=== PATIENT | male | born 1950 | race Caucasian/White ===

== ENCOUNTER 2022-12-22 10:52 | Emergency (ER) | payer MEDICARE ==
--- NOTE | 2022-12-22 11:01 | ERPHSYRPT ---
- History of Present Illness Time Seen by Provider: 12/22/22 11:01 Source: patient Exam Limitations: no limitations Physician History: This is a 72-year-old white male patient who is a patient of nurse practitioner Rosa Stewart and has had intermittent dizziness for the last 2 to 3 months. He became concerned because in the last several days he has had more frequent ep isodes including 3 episodes yesterday. He states that he does not know specifically what brings it on but he has noticed there have been times where he is looked to the right and down and then when he brought his eyes back to midline he was a little bit dizzy and had double vision. The symptoms cleared up relatively quickly. He has not had any head injury. There is been no exposure to any new medications. In fact he has no known drug allergies and he takes no medications chronically. Patient denies chest pain and he denies shortness of breath. He said no abdominal pain. He said no nausea vomiting or diarrhea. However when these episodes come on abruptly he does experience some nausea. Timing/Duration: intermittent, other (2 to 3 months) Severity: mild Character of Deficits: none Deficits: no difficulties Baseline/Normal Cognition: alert oriented x 3 (To moderate) Current Cognition: alert oriented x 3 Baseline Gait: walks w/o assistance Associated Symptoms: denies symptoms, nausea (Occasionally with the episodes but not all episodes), vision changes (Short-lived double vision), other (Dizziness) Allergies/Adverse Reactions: No Known Drug Allergies Allergy (Verified 12/22/22 11:09) Travel Risk - Coronavirus Screening Are you exhibiting any of the following symptoms?: No Close contact with a COVID-19 positive Pt in past 14-21 Days: No - Review of Systems Constitutional: No Symptoms Eyes: No Symptoms Ears, Nose, & Throat: No Symptoms Respiratory: No Symptoms Cardiac: No Symptoms Abdominal/Gastrointestinal: Nausea (Occasionally with episodes of dizziness) Genitourinary Symptoms: No Symptoms Musculoskeletal: No Symptoms Skin: No Symptoms Neurological: Dizziness Psychological: No Symptoms Endocrine: No Symptoms Hematologic/Lymphatic: No Symptoms Immunological/Allergic: No Symptoms All Other Systems: Reviewed and Negative - Past Medical History Pertinent Past Medical History: No - Past Surgical History Past Surgical History: No - Nursing Vital Signs Nursing Vital Signs: Initial Vital Signs Temperature 97.9 F 12/22/22 11:01 Pulse Rate 86 12/22/22 11:01 Respiratory Rate 20 12/22/22 11:01 Blood Pressure 160/83 12/22/22 11:01 O2 Sat by Pulse Oximetry 98 12/22/22 11:01 Pain Scale Pain Intensity 0 - [place] Coma Scale Best Eye Response (Nicolle): (4) open spontaneously Best Verbal Response ([place]): (5) oriented Best Motor Response (N[place]le): (6) obeys commands [place] Total: 15 - Physical Exam General Appearance: no apparent distress, alert, anxiety Eye Exam: bilateral eye: normal inspection, PERRL, EOMI Ears, Nose, Throat Exam: normal ENT inspection, moist mucous membranes Neck Exam: normal inspection, non-tender, supple, full range of motion Respiratory: normal breath sounds, lungs clear, airway intact, No chest tenderness, No respiratory distress Cardiovascular: regular rate/rhythm, normal heart sounds, normal peripheral pulses Gastrointestinal: soft, normal bowel sounds, No tenderness Rectal Exam: not done Back Exam: normal inspection, normal range of motion, No CVA tenderness, No vertebral tenderness Extremity Exam: normal inspection, normal range of motion, pelvis stable Mental Status: alert, oriented x 3, cooperative stitchdowns toe former Exam: normal hearing, normal speech, PERRL, tongue midline Coordination/Gait: normal finger to nose, normal gait, normal cerebellar funct ion Skin Exam: normal color, warm, dry SpO2 Interpretation: normal O2 Delivery: Room Air - Course Nursing assessment & vital signs reviewed: Yes EKG Interpreted by Me: RATE (76), Sinus Rhythm, NORMAL AXIS, NORMAL INTERVALS, NORMAL QRS, NORMAL ST-T, Other (No acute ischemic changes on today's twelve-lead EKG) Ordered Tests: Active Orders 24 hr Category Date Time Status Yarding Supervisor STAT Care 12/22/22 11:38 Active EKG-ER Only STAT Care 12/22/22 11:37 Active IV Insertion STAT Care 12/22/22 11:37 Active HEAD WITHOUT CONTRAST [CT] Stat Exams 12/22/22 11:38 Completed CBC W DIFF Stat Lab 12/22/22 11:10 Completed CMP Stat Lab 12/22/22 11:10 Completed ETHYL ALCOHOL Stat Lab 12/22/22 11:10 Completed MAGNESIUM Stat Lab 12/22/22 11:10 Completed TROPONIN Q4H Lab 12/22/22 11:10 Completed TROPONIN Q4H Lab 12/22/22 15:45 Ordered TROPONIN Q4H Lab 12/22/22 19:45 Ordered UA W/RFX UR CULTURE Stat Lab 12/22/22 12:19 Completed Urine Triage Profile Stat Lab 12/22/22 12:19 Completed Medication Summary Discontinued Medications Generic Name Dose Route Start Last Admin Trade Name Boby PRN Reason Stop Dose Admin Meclizine HCl 25 mg 12/22/22 13:00 12/22/22 13:05 Meclizine Hcl 25 Mg Tablet PO 12/22/22 13:01 25 mg STAT ONE Administration Meclizine HCl Confirm 12/22/22 13:04 Meclizine Hcl 25 Mg Tablet Administered 12/22/22 13:05 Dose 25 mg .ROUTE .STK-MED ONE Lab/Rad Data: Laboratory Result Diagrams 12/22/22 11:10 12/22/22 11:10 Laboratory Results 12/22/22 12/22/22 12/22/22 Range/Units 12:19 12:19 11:10 WBC (4.0-10.5) x10^3/uL RBC (4.1-5.6) x10^6/uL Hgb (12.5-18.0) g/dL Hct (42-50) % MCV (78-100) fL MCH (26-32) pg MCHC (32-36) g/dL RDW (11.5-14.0) % Plt Count (150-450) x10^3/uL MPV (7.5-11.0) fL Gran % (36.0-66.0) % Immature Gran % (Auto) (0.00-0.4) % Nucleat RBC Rel Count (0.00-0.1) % Eos # (Auto) (0-0.5) x10^3/uL Immature Gran # (Auto) (0.00-0.03) x10^3u/L Absolute Lymphs (auto) (1.0-4.6) x10^3/uL Absolute Monos (auto) (0.0-1.3) x10^3/uL Absolute Nucleated RBC (0.00-0.01) x10^3u/L Lymphocytes % (24.0-44.0) % Monocytes % (0.0-12.0) % Eosinophils % (0.00-5.0) % Basophils % (0.0-0.4) % Absolute Granulocytes (1.4-6.9) x10^3/uL Basophils # (0-0.4) x10^3/uL Sodium (137-145) mmol/L Potassium (3.5-5.1) mmol/L Chloride (98-107) mmol/L Carbon Dioxide (22-30) mmol/L Anion Gap (5-15) MEQ/L BUN (9-20) mg/dL Creatinine (0.66-1.25) mg/dL Estimated GFR ML/MIN Glucose (74-106) mg/dL Calcium (8.4-10.2) mg/dL Magnesium (1.6-2.3) mg/dL Total Bilirubin (0.2-1.3) mg/dL AST (17-59) U/L ALT (0-50) U/L Alkaline Phosphatase (38-126) U/L Troponin I < 0.012 (0.000-0.034) ng/mL Serum Total Protein (6.3-8.2) g/dL Albumin (3.5-5.0) g/dL Urine Color Yellow (Yellow) Urine Appearance Clear (Clear) Urine pH 5.5 (4.6-8.0) Ur Specific [place] 1.010 (1.005-1.030) Urine Protein Negative (Negative) Urine Glucose (UA) Negative (Negative) mg/dL Urine Ketones Negative (Negative) Urine Blood Negative (Negative) Urine Nitrite Negative (Negative) Urine Bilirubin Negative (Negative) Urine Urobilinogen 0.2 (0.2) mg/dL Ur Leukocyte Esterase Negative (Negative) U Hyaline Cast (Auto) NONE SEEN (0-2) /LPF Urine Microscopic RBC 0-2 (0-5) /HPF Urine Microscopic WBC 0-2 (0-5) /HPF Ur Epithelial Cells None Seen (None Seen) /HPF Urine Bacteria None Seen (None Seen) /HPF Urine Culture Reflexed NO (NO) Urine Opiates Level NEGATIVE (NEGATIVE) Ur Methadone NEGATIVE (NEGATIVE) Urine Barbiturates NEGATIVE (NEGATIVE) Ur Phencyclidine (PCP) NEGATIVE (NEGATIVE) Urine Amphetamine NEGATIVE (NEGATIVE) U Benzodiazepine Level NEGATIVE (NEGATIVE) Urine Cocaine NEGATIVE (NEGATIVE) Urine Marijuana (THC) NEGATIVE (NEGATIVE) Ethyl Alcohol (0-10) mg/dL 12/22/22 12/22/22 Range/Units 11:10 11:10 WBC 7.8 (4.0-10.5) x10^3/uL RBC 5.08 (4.1-5.6) x10^6/uL Hgb 15.9 (12.5-18.0) g/dL Hct 46.7 (42-50) % MCV 91.9 (78-100) fL MCH 31.3 (26-32) pg MCHC 34.0 (32-36) g/dL RDW 12.8 (11.5-14.0) % Plt Count 268 (150-450) x10^3/uL MPV 9.9 (7.5-11.0) fL Gran % 65.4 (36.0-66.0) % Immature Gran % (Auto) 0.3 (0.00-0.4) % Nucleat RBC Rel Count 0.0 (0.00-0.1) % Eos # (Auto) 0.20 (0-0.5) x10^3/uL Immature Gran # (Auto) 0.02 (0.00-0.03) x10^3u/L Absolute Lymphs (auto) 1.69 (1.0-4.6) x10^3/uL Absolute Monos (auto) 0.69 (0.0-1.3) x10^3/uL Absolute Nucleated RBC 0.00 (0.00-0.01) x10^3u/L Lymphocytes % 21.6 L (24.0-44.0) % Monocytes % 8.8 (0.0-12.0) % Eosinophils % 2.6 (0.00-5.0) % Basophils % 1.3 (0.0-0.4) % Absolute Granulocytes 5.14 (1.4-6.9) x10^3/uL Basophils # 0.10 (0-0.4) x10^3/uL Sodium 139 (137-145) mmol/L Potassium 4.4 (3.5-5.1) mmol/L Chloride 103 (98-107) mmol/L Carbon Dioxide 26 (22-30) mmol/L Anion Gap 14.3 (5-15) MEQ/L BUN 17 (9-20) mg/dL Creatinine 1.14 (0.66-1.25) mg/dL Estimated GFR > 60.0 ML/MIN Glucose 137 H (74-106) mg/dL Calcium 9.1 (8.4-10.2) mg/dL Magnesium 2.2 (1.6-2.3) mg/dL Total Bilirubin 0.80 (0.2-1.3) mg/dL AST 20 (17-59) U/L ALT 20 (0-50) U/L Alkaline Phosphatase 96 (38-126) U/L Troponin I (0.000-0.034) ng/mL Serum Total Protein 7.9 (6.3-8.2) g/dL Albumin 4.4 (3.5-5.0) g/dL Urine Color (Yellow) Urine Appearance (Clear) Urine pH (4.6-8.0) Ur Specific [place] (1.005-1.030) Urine Protein (Negative) Urine Glucose (UA) (Negative) mg/dL Urine Ketones (Negative) Urine Blood (Negative) Urine Nitrite (Negative) Urine Bilirubin (Negative) Urine Urobilinogen (0.2) mg/dL Ur Leukocyte Esterase (Negative) U Hyaline Cast (Auto) (0-2) /LPF Urine Microscopic RBC (0-5) /HPF Urine Microscopic WBC (0-5) /HPF Ur Epithelial Cells (None Seen) /HPF Urine Bacteria (None Seen) /HPF Urine Culture Reflexed (NO) Urine Opiates Level (NEGATIVE) Ur Methadone (NEGATIVE) Urine Barbiturates (NEGATIVE) Ur Phencyclidine (PCP) (NEGATIVE) Urine Amphetamine (NEGATIVE) U Benzodiazepine Level (NEGATIVE) Urine Cocaine (NEGATIVE) Urine Marijuana (THC) (NEGATIVE) Ethyl Alcohol < 10 (0-10) mg/dL - Progress Progress: improved Progress Note: 12/22/22 13:14 CT scan of the head without contrast shows a nonacute senile brain. 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 There is mild paranasal sinus disease. This patient's medical issue is 1 of moderate complexity. The level of complexity and the work-up performed is based on the patient's past medical history, medication list review, review of drug allergy list, history of present illness and physical findings on examination. The work-up performed was p lacement of an intravenous line, obtaining and twelve-lead EKG, troponin level, CBC, CMP, urinalysis and urine drug screen. Review of the results of the study show no acute or emergent findings. The diagnosis will be vertigo. We we will provide the patient with Antivert 25 mg orally now and a prescription will be sent to his pharmacy for the same. Patient is to follow-up with his primary care provider for further evaluation and management. Counseled pt/family regarding: lab results, diagnosis, need for follow-up, rad results Medical Desision Making - Discussion of managment Reviewed:: Test results, Need for additional workup Agreed on:: Treatment plan, need for follow-up - Diagnostic Testing Diagnostic test were ordered, analyzed, and reviewed by me: Yes Radiological Interpretation: Reviewed by me, Teleradiologist Report - Risk of complications The pt has a mod risk of morbidity or mortality based on: Need for prescription drug management - Departure Departure Disposition: Home Clinical Impression: Vertigo Condition: Stable Critical Care Time: No Referrals: SCREEN,DRUG [NON-STAFF PHY W/O PRIVILEGES] - Follow up/PCP as directed Additional Instructions: Drink plenty of fluids. Take your medication as prescribed. Follow-up with your primary care provider for further evaluation and management including referral to a neurologist if indicated. Prescriptions: Meclizine HCl 25 mg [Antivert 25 mg] 25 mg PO Q8H PRN #10 tablet PRN Reason: Dizziness
[2022-12-22 11:56] LABS: Absolute Neutrophil Ct (ANC) 5.14 x10^3/uL (1.4-6.9); BASOPHIL % 1.3 % (0.0-0.4); Eosinophil % 2.6 % (0.00-5.0); Hematocrit 46.7 % (42-50); Hemoglobin 15.9 g/dL (12.5-18.0); IMMATURE GRAN # 0.02 x10^3u/L (0.00-0.03); IMMATURE GRAN % 0.3 % (0.00-0.4); Lymphocyte (Absolute #) 1.69 x10^3/uL (1.0-4.6); Lymphocytes % 21.6 % (24.0-44.0); Mean Cell Volume 91.9 fL (78-100); Mean Corpuscular Hemoglobin 31.3 pg (26-32); Mean Platelet Volume 9.9 fL (7.5-11.0); Monocyte (Absolute #) 0.69 x10^3/uL (0.0-1.3); Monocytes % 8.8 % (0.0-12.0); Neutrophil % 65.4 % (36.0-66.0); Platelet Count 268 x10^3/uL (150-450); Red Blood Count 5.08 x10^6/uL (4.1-5.6); Red Cell Distribution Width 12.8 % (11.5-14.0); White Blood Count 7.8 x10^3/uL (4.0-10.5)
[2022-12-22 12:10] LABS: ALBUMIN 4.4 g/dL (3.5-5.0); ALKALINE PHOSPHATASE 96 U/L (38-126); ANION GAP 14.3 MEQ/L (5-15); BLOOD UREA NITROGEN 17 mg/dL (9-20); CHLORIDE 103 mmol/L (98-107); Calcium 9.1 mg/dL (8.4-10.2); Carbon Dioxide 26 mmol/L (22-30); Creatinine 1 1.14 mg/dL (0.66-1.25); EST GLOMERULAR FILTRATION RATE > 60.0 ML/MIN; ETHYL ALCOHOL < 10 mg/dL (0-10); Glucose 137 mg/dL (74-106); MAGNESIUM 2.2 mg/dL (1.6-2.3); Potassium 4.4 mmol/L (3.5-5.1); SGOT/AST 20 U/L (17-59); SGPT/ALT 20 U/L (0-50); SODIUM 139 mmol/L (137-145); Total Protein 7.9 g/dL (6.3-8.2)
--- NOTE | 2022-12-22 12:26 | XRAY ---
Indication: Dizziness. Multiple contiguous axial images obtained through the head without contrast. Comparison: None Age-appropriate global atrophy and minimal periventricular degenerative micro-ischemia. Basal ganglia demonstrates if few tiny remote lacunar infarcts bilaterally. No acute intracranial hemorrhage, abnormal extra-axial fluid collection, or mass effect. Fourth ventricle is midline without hydrocephalus. Montilla-white matter differentiation preserved. Bony calvarium intact. Mild mucosal thickening both ethmoid sinuses. Mastoid air cells are clear. Impression: Nonacute senile brain with tiny bilateral remote lacunar infarcts basal ganglia. Incidental mild paranasal sinus disease.
[2022-12-22 12:33] VITALS: O2SAT 97
[2022-12-22 12:42] LABS: Appearance Clear (Clear); Bacteria None Seen /HPF (None Seen); Bilirubin Negative (Negative); Blood Negative (Negative); Epithelial Cells None Seen /HPF (None Seen); Glucose, Urine Negative (Negative); Hyaline Casts NONE SEEN /LPF (0-2); Ketones Negative (Negative); Leukocyte Esterase Negative (Negative); Nitrite Negative (Negative); Ph 5.5 (4.6-8.0); Protein,Urine Dip Negative (Negative); RBC 0-2 /HPF (0-5); Urobilinogen 0.2 mg/dL (0.2); WBC 0-2 /HPF (0-5)
[2022-12-22 12:47] LABS: ADD URINE CULTURE? NO (NO)
[2022-12-22] MEDS ORDERED: ANTIVERT 25 MG PO ONE (13:00)
[2022-12-22 13:01] LABS: Amphetamine,Urine NEGATIVE (NEGATIVE); Barbiturate,Urine NEGATIVE (NEGATIVE); Benzodiazepine,Urine NEGATIVE (NEGATIVE); Cocaine,Urine NEGATIVE (NEGATIVE); Methadone,Urine NEGATIVE (NEGATIVE); Opiate,Urine NEGATIVE (NEGATIVE); PCP,Urine NEGATIVE (NEGATIVE); THC,Urine NEGATIVE (NEGATIVE)
[2022-12-22] MEDS ORDERED: ANTIVERT 25 MG ONE (13:04)
[2022-12-22 13:33] VITALS: BP 132/82; PULSE 75
== END 2022-12-22 13:34 | disposition home or self-care (01) ==
LOC: ED 10:52
DX: R42 Dizziness and giddiness (principal); Z79.899 Other long term (current) drug therapy
CPT/HCPCS: 36000; 36415; 70450; 80053; 80307; 81001; 82077; 83735; 84484; 85025; 93005; 93041; 99284; A9270-GY

== ENCOUNTER 2023-03-03 13:11 | Emergency (ER) | payer MEDICARE ==
[2023-03-03] MEDS ORDERED: TORAdol 30 mg Injection IV ONE (13:31)
[2023-03-03] MEDS ORDERED: Zofran 4 MG/2 ML VIAL IV ONE (13:31)
[2023-03-03] MEDS ORDERED: TORAdol 30 mg Injection ONE (13:38)
[2023-03-03] MEDS ORDERED: Zofran 4 MG/2 ML VIAL ONE (13:38)
[2023-03-03] MEDS ORDERED: Sodium Chloride 0.9% 1000 ML 1,000 ML IV SCH (13:45)
[2023-03-03] MEDS ORDERED: Sodium Chloride 0.9% 1000 ML 1,000 ML ONE (13:49)
[2023-03-03 14:02] LABS: Absolute Neutrophil Ct (ANC) 8.85 x10^3/uL (1.4-6.9); BASOPHIL % 0.9 % (0.0-0.4); Basophil (Absolute #) 0.11 x10^3/uL (0-0.4); Eosinophil % 1.9 % (0.00-5.0); Eosinophil (Absolute #) 0.25 x10^3/uL (0-0.5); Hematocrit 45.4 % (42-50); Hemoglobin 15.4 g/dL (12.5-18.0); IMMATURE GRAN # 0.04 x10^3u/L (0.00-0.03); IMMATURE GRAN % 0.3 % (0.00-0.4); Lymphocyte (Absolute #) 2.64 x10^3/uL (1.0-4.6); Lymphocytes % 20.6 % (24.0-44.0); Mean Cell Volume 93.2 fL (78-100); Mean Corpuscular Hemoglobin 31.6 pg (26-32); Mean Corpuscular Hgb Concent. 33.9 g/dL (32-36); Mean Platelet Volume 9.8 fL (7.5-11.0); Monocyte (Absolute #) 0.95 x10^3/uL (0.0-1.3); Monocytes % 7.4 % (0.0-12.0); Neutrophil % 68.9 % (36.0-66.0); Platelet Count 263 x10^3/uL (150-450); Red Blood Count 4.87 x10^6/uL (4.1-5.6); White Blood Count 12.8 x10^3/uL (4.0-10.5)
[2023-03-03 14:20] LABS: ISTAT K 4.7 mmol/L (3.5-4.9); ISTAT iCA 1.19 mmol/L (1.12-1.32)
[2023-03-03 14:21] LABS: ISTAT CREA 1.6 mg/dL (0.6-1.3)
--- NOTE | 2023-03-03 14:25 | XRAY ---
Indication: Right flank pain and nausea. Multiple contiguous axial images obtained through the abdomen and pelvis without contrast. Comparison: None Lung bases clear. Heart is not enlarged. Small hiatal hernia. Noncontrasted stomach and bowel loops appear nonobstructed with normal appendix. Mild scattered colonic diverticulosis without diverticulitis. 7 mm right UPJ calculus with mild hydronephrosis. Left kidney demonstrates nonobstructing punctate calculus. No free fluid/air. Previous cholecystectomy. Remaining liver, pancreas, spleen, adrenal glands, kidneys, ureters, and bladder are unremarkable for noncontrast exam. Moderate scattered aortoiliac calcifications without AAA. Osseous structures intact with mild degenerative changes throughout the spine. Small fatty left inguinal hernia. Impression: 1. 7 mm right UPJ calculus producing partial obstruction. Nonobstructing left renal punctate calculus. 2. Chronic findings including hiatal hernia, colonic diverticulosis, fatty left inguinal hernia, arteriosclerotic disease, and degenerative spondylosis.
--- NOTE | 2023-03-03 15:06 | ERPHSYRPT ---
- History of Present Illness Time Seen by Provider: 03/03/23 13:30 Source: patient Exam Limitations: no limitations Patient Subjective Stated Complaint: Pain in the right flank that radiates to the RLQ that began this morning Triage Nursing Assessment: Pt brought to the ER by his , josefina del castillo, rates pain as 10/10, pt has only been nauseous but is now about to vomit, pt woke with the pain this morning and thought that it was in just one place in his RLQ until I pushed on his flank and he felt pain, pulses normal, denies pain with urination, last intake last night, last BM today, skin n/w/d, appears to be in moderate pain Physician History: Patient is a 72-year-old male presents to our ED for evaluation of right flank pain that started this morning upon awakening. Pain described as an ache that was initially localized but now radiates to his right lower quadrant. No trauma. No fever. No obvious hematuria. Symptoms are constant. Symptoms are moderate in intensity. No specific worsening or improving factors. Patient took a gram Tylenol at approximately 12 noon. Pain is associated with some nausea. at bedside. They voiced no other complaints or concerns at this time. Portions of this note were created with voice recognition technology. There may be grammatical, spelling, punctuation or sound alike errors Timing/Duration: today Severity: severe Modifying Factors: Improves With: acetaminophen, nothing Associated Symptoms: denies symptoms, other (Nausea) Allergies/Adverse Reactions: No Known Drug Allergies Allergy (Verified 03/03/23 13:26) Home Medications: Rosuvastatin Calcium 10 mg PO DAILY 03/03/23 [History] Scopolamine 1 each TD UD 03/03/23 [History] Hx Tetanus, Diphtheria Vaccination/Date Given: No Hx Influenza Vaccination/Date Given: Yes Hx Pneumococcal Vaccination/Date Given: Yes Travel Risk - International Travel Have you traveled outside of the country in past 3 weeks: No - Coronavirus Screening Are you exhibiting any of the following symptoms?: No Close contact with a COVID-19 positive Pt in past 14-21 Days: No - Vaccine Status Have you recieved a Covid-19 vaccination: Yes Travel Rn Or: Moderna - Vaccination Dates Date of 2cond Vaccination (if applicable): 2020 - Review of Systems Constitutional: No Symptoms, No Fever, No Chills Eyes: No Symptoms Ears, Nose, & Throat: No Symptoms Respiratory: No Symptoms, No Cough, No Dyspnea Cardiac: No Symptoms, No Chest Pain, No Edema, No Syncope Abdominal/Gastrointestinal: No Symptoms, No Abdominal Pain, No Nausea, No Vomiting, No Diarrhea Genitourinary Symptoms: No Symptoms, No Dysuria Musculoskeletal: No Symptoms, No Back Pain, No Neck Pain Skin: No Symptoms, No Rash Neurological: No Symptoms, No Dizziness, No Focal Weakness, No Sensory Changes Psychological: No Symptoms Endocrine: No Symptoms Hematologic/Lymphatic: No Symptoms Immunological/Allergic: No Symptoms All Other Systems: Reviewed and Negative - Past Medical History Pertinent Past Medical History: No Cardiac History: High Cholesterol Other Medical History: vertigo - Past Surgical History Past Surgical History: Yes Gastrointestinal: Cholecystectomy Musculoskeletal: Orthopedic Surgery Other Surgical History: neck - Social History Smoking Status: Current every day smoker How long have you smoked: years Exposure to second hand smoke: Yes Drug Use: none Patient Lives Alone: No - Nursing Vital Signs Nursing Vital Signs: Initial Vital Signs Temperature 97.3 F 03/03/23 13:16 Pulse Rate 66 03/03/23 13:16 Blood Pressure 127/74 03/03/23 13:16 O2 Sat by Pulse Oximetry 96 03/03/23 13:16 Pain Scale Pain Intensity 4 - Physical Exam General Appearance: no apparent distress, alert Eye Exam: PERRL/EOMI, eyes nml inspection Ears, Nose, Throat Exam: normal ENT inspection, moist mucous membranes Neck Exam: normal inspection, non-tender, supple, full range of motion Respiratory Exam: normal breath sounds, lungs clear, airway intact, No respiratory distress Cardiovascular Exam: regular rate/rhythm, normal heart sounds, normal peripheral pulses Gastrointestinal/Abdomen Exam: soft, normal bowel sounds, other (Right CVA tende rness to palpation), No tenderness, No mass Back Exam: normal inspection, normal range of motion, No CVA tenderness, No vertebral tenderness Extremity Exam: normal inspection, normal range of motion, pelvis stable Neurologic Exam: alert, oriented x 3, cooperative, normal mood/affect, sensation nml, No motor deficits Skin Exam: normal color, warm, dry, No rash Lymphatic Exam: No adenopathy SpO2 Interpretation: normal SpO2: 97 O2 Delivery: Room Air - Course Nursing assessment & vital signs reviewed: Yes - CT Exams Abdomen/Pelvis CT Interpretation: Tele-radiologist Report (Right 7 mm UPJ stone with hydronephrosis. Hiatal hernia, diverticulosis, fatty inguinal hernia) Ordered Tests: Active Orders 24 hr Category Date Time Status IV Insertion STAT Care 03/03/23 13:44 Active ABDOMEN AND PELVIS W/0 CONTRAS [CT] Stat Exams 03/03/23 13:45 Completed ALBUMIN Stat Lab 03/03/23 13:45 Completed ALKALINE PHOSPHATASE Stat Lab 03/03/23 13:45 Completed BILIRUBIN,TOTAL Stat Lab 03/03/23 13:45 Completed CBC W DIFF Stat Lab 03/03/23 13:45 Completed SGOT/AST Stat Lab 03/03/23 13:45 Completed SGPT/ALT Stat Lab 03/03/23 13:45 Completed Total Protein Stat Lab 03/03/23 13:45 Completed UA W/RFX UR CULTURE Stat Lab 03/03/23 15:47 Ordered Medication Summary Generic Name Dose Route Start Last Admin Trade Name Freq PRN Reason Stop Dose Admin Sodium Chloride 1,000 mls @ 100 mls/hr 03/03/23 13:45 03/03/23 13:50 Sodium Chloride 0.9% 1000 Ml IV 04/02/23 13:44 100 mls/hr .Q10H JUNE Administration Discontinued Medications Generic Name Dose Route Start Last Admin Trade Name Freq PRN Reason Stop Dose Admin Ketorolac Tromethamine 30 mg 03/03/23 13:31 03/03/23 13:41 Ketorolac Tromethamine 30 Mg/Ml Inj IV 03/03/23 13:32 30 mg STAT ONE Administration Ketorolac Tromethamine Confirm 03/03/23 13:38 Ketorolac Tromethamine 30 Mg/Ml Inj Administered 03/03/23 13:39 Dose 30 mg .ROUTE .STK-MED ONE Ondansetron HCl 4 mg 03/03/23 13:31 03/03/23 13:40 Ondansetron Hcl 4 Mg/2 Ml Vial IV 03/03/23 13:32 4 mg STAT ONE Administration Ondansetron HCl Confirm 03/03/23 13:38 Ondansetron Hcl 4 Mg/2 Ml Vial Administered 03/03/23 13:39 Dose 4 mg .ROUTE .STK-MED ONE Lab/Rad Data: Laboratory Result Diagrams 03/03/23 13:45 03/03/23 13:45 Laboratory Results 03/03/23 03/03/23 Range/Units 13:45 13:45 WBC 12.8 H (4.0-10.5) x10^3/uL RBC 4.87 (4.1-5.6) x10^6/uL Hgb 15.4 (12.5-18.0) g/dL Hct 45.4 (42-50) % MCV 93.2 (78-100) fL MCH 31.6 (26-32) pg MCHC 33.9 (32-36) g/dL RDW 13.0 (11.5-14.0) % Plt Count 263 (150-450) x10^3/uL MPV 9.8 (7.5-11.0) fL Gran % 68.9 H (36.0-66.0) % Immature Gran % (Auto) 0.3 (0.00-0.4) % Nucleat RBC Rel Count 0.0 (0.00-0.1) % Eos # (Auto) 0.25 (0-0.5) x10^3/uL Immature Gran # (Auto) 0.04 H (0.00-0.03) x10^3u/L Absolute Lymphs (auto) 2.64 (1.0-4.6) x10^3/uL Absolute Monos (auto) 0.95 (0.0-1.3) x10^3/uL Absolute Nucleated RBC 0.00 (0.00-0.01) x10^3u/L Lymphocytes % 20.6 L (24.0-44.0) % Monocytes % 7.4 (0.0-12.0) % Eosinophils % 1.9 (0.00-5.0) % Basophils % 0.9 (0.0-0.4) % Absolute Granulocytes 8.85 H (1.4-6.9) x10^3/uL Basophils # 0.11 (0-0.4) x10^3/uL Sodium Direct 138 (138-146) mmol/L Potassium 4.7 (3.5-4.9) mmol/L Chloride 104 (98-109) mmol/L Carbon Dioxide 27 (24-29) mmol/L Venous BUN 19 (8-26) mg/dL Creatinine 1.6 H (0.6-1.3) mg/dL Glucose 148 H (70-105) mg/dL Ionized Calcium 1.19 (1.12-1.32) mmol/L Total Bilirubin 0.60 (0.2-1.3) mg/dL AST 25 (17-59) U/L ALT 22 (0-50) U/L Alkaline Phosphatase 80 (38-126) U/L Serum Total Protein 7.4 (6.3-8.2) g/dL Albumin 4.1 (3.5-5.0) g/dL - Progress Progress: improved Progress Note: Case discussed with ER physician Dr. Ellsworth [facility] who accepts transfer. Dr. Rushing accepts transfer at 4:20 PM. Portions of this note were created with voice recognition technology. There may be grammatical, spelling, punctuation or sound alike errors 03/03/23 16:22 Patient is a 72-year-old male presents to our ED with acute onset right flank pain. Physical exam reveals right-sided costovertebral angle tenderness. CT abdomen pelvis reveals a 7 mm UPJ stone obstructing. CBC CMP completed. CMP reveals elevated creatinine of 1.6. Urinalysis pending. Patient received normal saline Toradol and Zofran. Pain significantly improved. Due to compromised renal function and the relatively large size of the observed stone patient will be transferred for higher level of care, urology services. Complexity of problem addressed is moderate acute complicated with systemic manifestations. No critical care time Complex of data reviewed and analyzed is extensive. Test ordered. Test reviewed. Test analyzed including findings of CAT scan clinical correlation between findings and labs confirm acute renal injury likely due to acute o bstructive uropathy. This will require higher level of care/urology services patient will be transferred. Plan of care discussed with Dr. Ellsworth ER physician at [facility] who accepts transfer. Risk of complication and or risk of morbidity/mortality of patient management is high. Patient will require hospitalization/transfer to higher level of care. Plan of care discussed with patient. She agrees to transfer to [facility]. Time in spent to transfer patient is approximately 15 minutes. Vital stable at time of transfer. Plan of care established via shared decision joselin smith. Patient's daughter also involved in decision making. Portions of this note were created with voice recognition technology. There may be grammatical, spelling, punctuation or sound alike errors 03/03/23 16:39 Counseled pt/family regarding: lab results, diagnosis, rad results - Departure Departure Disposition: Transfer Clinical Impression: Nephrolithiasis, Hydronephrosis, Acute renal insufficiency, Renal colic, Small hiatal hernia, Left fatty inguinal hernia, Diverticulosis, Arthritis of spine Condition: Stable Critical Care Time: No Referrals: [facility] [Primary Care Provider] - Follow up/PCP as directed
[2023-03-03 16:16] VITALS: BP 118/86; PULSE 68
[2023-03-03 16:23] VITALS: O2SAT 97
[2023-03-03 16:31] LABS: ALBUMIN 4.1 g/dL (3.5-5.0); BILIRUBIN,TOTAL 0.6 mg/dL (0.2-1.3); Total Protein 7.4 g/dL (6.3-8.2)
[2023-03-03 17:35] LABS: Appearance Clear (Clear); Bacteria None Seen /HPF (None Seen); Bilirubin Negative (Negative); Blood Moderate (Negative); Epithelial Cells None Seen /HPF (None Seen); Glucose, Urine Negative (Negative); Hyaline Casts NONE SEEN /LPF (0-2); Ketones Trace (Negative); Leukocyte Esterase Negative (Negative); Nitrite Negative (Negative); Protein,Urine Dip 30 (Negative); Specific Gravity >=1.030 (1.005-1.030); WBC 0-2 /HPF (0-5)
[2023-03-03 17:47] LABS: ADD URINE CULTURE? NO (NO)
== END 2023-03-03 16:47 | disposition short-term general hospital (02) ==
LOC: ED 13:11
DX: N13.2 Hydronephrosis with renal and ureteral calculous obstruction (principal); N28.9 Disorder of kidney and ureter, unspecified; K44.9 Diaphragmatic hernia without obstruction or gangrene; K40.90 Unilateral inguinal hernia, without obstruction or gangrene, not specified as recurrent; K57.90 Diverticulosis of intestine, part unspecified, without perforation or abscess without bleeding; M47.9 Spondylosis, unspecified; R10.31 Right lower quadrant pain; R11.0 Nausea; E78.5 Hyperlipidemia, unspecified; Z79.899 Other long term (current) drug therapy; Z72.0 Tobacco use
CPT/HCPCS: 36000; 36415; 74176; 80047; 81001; 82040; 82247; 83521; 84075; 84450; 84460; 85025; 96374; 96375; 99285; J1885; J2405